=== PATIENT | female | born 1950 | race Two or more races ===

== ENCOUNTER → 2019-09-15 | Outpatient (CLI) | payer OTHER, BC ==
[~2019-09-15] MED LIST: ADVAIR 100-501 EACH IH; CRESTOR10 MG PO; LOTREL 10/20 CA1 CAP PO; PLAVIX75 MG PO; SINGULAIR 10MG10 MG PO; [UNRECOGNIZED DRUG - OTHER]
== END | disposition home or self-care (01) ==
LOC: RAD 14:10
DX: J45.41 Moderate persistent asthma with (acute) exacerbation (principal); E66.01 Morbid (severe) obesity due to excess calories; R06.02 Shortness of breath

== ENCOUNTER 2019-10-14 22:00 | Emergency (ER) | payer OTHER, BC ==
[~2019-10-14] VITALS: Ht 157.5 cm; Wt 153.3 kg
[2019-10-14] MEDS ORDERED: NABUMETONE750 MG (22:25)
[2019-10-14] MEDS ORDERED: LOSARTAN-HCTZ1 EAC2 (22:25)
[2019-10-14] MEDS ORDERED: SKELAXIN800 MG PO (23:45)
== END 2019-10-15 00:15 | disposition home or self-care (01) ==
LOC: ER 22:00
DX: M94.0 Chondrocostal junction syndrome [Tietze] (principal)

== ENCOUNTER 2024-05-25 14:21 | Emergency (ER) | payer OTHER, BC ==
[~2024-05-25] VITALS: Ht 154.9 cm; Wt 105.7 kg
[~2024-05-25 14:21] MED LIST changes: +LOSARTAN-HCTZ1 EAC2; +NABUMETONE750 MG; +SKELAXIN800 MG PO
[2024-05-25] MEDS ORDERED: PLAVIX75 MG (14:52)
[2024-05-25] MEDS ORDERED: HYDROCODONE/CHLORPHEN P-STIREX 5 ML ML PO STA (16:25)
[2024-05-25 16:47] LABS: HEMATOCRIT 37.9 % (36.0-45.00); HEMOGLOBIN 12.7 g/dL (12.0-15.00); MEAN CELL VOLUME 88.9 fL (80.00-100.00); MEAN CORPUSCULAR HEMOGLOBIN 29.9 pg (27.00-32.0); MEAN CORPUSCULAR HGB CONC 33.6 g/dl (32.0-36.0); PLATELET COUNT 171 K/uL (150-450); RED BLOOD COUNT 4.27 M/uL (4.00-6.00); RED CELL DISTRIBUTION WIDTH 14.8 % (11.5-14.5)
== END 2024-05-25 19:03 | disposition home or self-care (01) ==
LOC: ER 14:22
DX: U07.1 COVID-19 (principal); I10 Essential (primary) hypertension; Z88.8 Allergy status to other drugs, medicaments and biological substances